=== PATIENT | male | born 1970 | race Caucasian/White ===

== ENCOUNTER → 2018-04-19 | Outpatient (CLI) | payer BC, OTHER ==
--- NOTE | 2018-04-19 13:43 | KCIC ---
MR of the left knee Indication: Left knee pain and swelling. Medial pain for a few weeks. No known injury. Technique: The standard multiplanar sequences are obtained. FINDINGS: Artifact: No significant image degradation. Medial meniscus: Degenerative tear particularly through the body and posterior horn. Lateral meniscus: Mild signal within lateral meniscus but no definite tear Anterior cruciate ligament: Intact Posterior cruciate ligament: Intact Medial collateral ligament: Intact. Lateral structures: * Iliotibial band: Intact. * Lateral collateral ligament: Intact. * Biceps femoris tendon: Intact * Popliteus tendon attachment: Intact Extensive mechanism: * Patellar tendon: Intact * Quadriceps tendon: Intact * Retinacular structures: Intact Fluid: Moderate joint effusion. No significant Godoy's cyst. Intra-articular bodies: None visualized Joint compartments * patellofemoral joint:Intact * medial compartment:Intact * lateral compartment:Intact Bones: Acute subchondral marrow edema at the anterior medial tibial plateau. No gross macro fracture. No aggressive bone destruction. Soft tissue: Unremarkable Impression: 1. Medial meniscal tear. 2. Acute subchondral marrow edema at the anterior medial tibial plateau, consider marrow or subtle nondisplaced fracture if there has been an injury. If not, consider a small stress reaction. Electronically signed by: Hermelindo Cottrell MD (04/19/2018 1:40 PM) [facility]
== END | disposition home or self-care (01) ==
LOC: KCIC MRI 11:59
DX: S83.242A Other tear of medial meniscus, current injury, left knee, initial encounter (principal); X58.XXXA Exposure to other specified factors, initial encounter; Y93.89 Activity, other specified; Y92.89 Other specified places as the place of occurrence of the external cause; Y99.8 Other external cause status
CPT/HCPCS: 73721

== ENCOUNTER 2018-06-28 09:46 | Day surgery (SDC) | payer BC, OTHER ==
[~2018-06-28] VITALS: Ht 182.9 cm; Wt 91.6 kg
[~2018-06-28 09:46] MED LIST: HYDROmorphone 2 MG/ML VIAL IV PRN; IBUP-1027 PO; IV RINGERS,LACTATED 1000ML 1,000 ML IV SCH; LIDOCAINE 1% PF 2 ML VIAL. ID PRN; MORPHINE SULFATE 2 MG/ML VIAL. IV PRN; ONDANSETRON PF 4 MG/2 ML VIAL. IV PRN; PROCHLORPERAZINE 10 MG/2 ML VIAL. IV PRN; fentaNYL PF VIAL 100 MCG/2 ML VIAL IV PRN
[2018-06-28] MEDS ORDERED: VENTOLIN HFA18 GM INH (10:10)
--- NOTE | 2018-06-28 10:22 | DISCH ---
DISCHARGE INSTRUCTIONS Condition on Discharge Condition on Discharge: Stable Activity After Discharge Activity Instructions for Disc: Other, see below Other activity instructions: okay to weight-bear as tolerated Bathing Instructions: Shower-keep dressing dry Weight Bearing Status after Di: As tolerated Diet after Discharge Diet after Discharge: Regular Wound Incision Care Wound/Incision Care: Ice to area for comfort, Keep wound/cast CDI, Change dressing Other wound/incision instructi: okay to change dressing after [address] after DC Call your doctor for: Concerns you may have Follow-Up Follow up with: Rupal in 2 weeks ELIJAH TINEO II, MD Jun 28, 2018 10:22
[2018-06-28] MEDS ORDERED: BUPIVACAINE MPF 0.5% 30 ML VIAL. ONE (11:12)
[2018-06-28] MEDS ORDERED: EPINEPHrine VIAL 30 MG/30 ML VIAL ONE (11:12)
[2018-06-28] MEDS ORDERED: LIDOCAINE 1% PF 30 ML VIAL. ONE (11:12)
[2018-06-28] MEDS ORDERED: LIDOCAINE 2% PF Vial for OR 5 ML VIAL. ONE (12:00)
[2018-06-28] MEDS ORDERED: PROPOFOL 20 ML IV ONE ×3 (12:00→13:29)
[2018-06-28] MEDS ORDERED: fentaNYL PF VIAL 100 MCG/2 ML VIAL ONE ×2 (12:00→13:22)
[2018-06-28] MEDS ORDERED: ONDANSETRON PF 4 MG/2 ML VIAL. ONE (12:00)
[2018-06-28] MEDS ORDERED: DEXAMETHASONE SOD PHOS 20 MG/5 ML VIAL. ONE (12:00)
[2018-06-28] MEDS ORDERED: MIDAZOLAM HCL/PF 2 MG/2 ML VIAL. ONE (12:00)
[2018-06-28] MEDS ORDERED: SEVOFLURANE 31 TO 60 MINUTES. IH ONE (13:24)
--- NOTE | 2018-06-28 13:39 | PDOC4 ---
Operative Note Operative Note Date of procedure: 06/28/2018 Surgeon: Greg Tineo Preoperative diagnosis: Left knee medial meniscal tear Postoperative diagnosis: same Procedure performed: Left knee arthroscopic partial medial meniscectomy Anesthesia: GETA Tourniquet time: 16min Complications: none Blood loss: 5mL Findings: Grade II-III changes centrally at patella and trochlea Intact medial compartment cartilage Intact lateral compartment cartilage Intact cruciate ligaments No loose bodies Intact lateral meniscus Complex degenerative tear at the midportion of body of medial meniscus Reason for procedure: 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 Please see my outpatient consult note for full details. We tried an injection and rehabbing his knee, however this was unsuccessful. Given his knee pain, painful catching, we had a discussion of the risks, benefits, and alternatives to the above surgery as this problem was interfering with his ability to work. Description of procedure: patient was greeted in the preoperative holding area where the correct extremity was verified and marked. He was taken back to the operative suite and his antibiotics were started as he was brought back. Once in the operating room, he was transferred gently supine to the operating room table and secured the bed with all pressure points padded and had successful induction of a general anesthetic. A nonsterile tourniquet was applied to his left upper thigh. We had a padded bump laterally at his hip and a padded bar across for the bed. The left lower extremity was prepped and draped in our usual sterile fashion we conducted our standard preoperative timeout. I then palpated and localized surface anatomy and atiya lines for my standard anterolateral anteromedial arthroscopic portals. I incised the skin through the anterolateral portal after exsanguinating the extremity with an Esmarch and insufflated tourniquet to 250 mmHg. I then introduce the blunt arthroscopic trocar into the suprapatellar pouch followed by the camera. I then conducted my diagnostic arthroscopy with the above noted findings and upon entering the medial compartment used a spinal needle to localize the anteromedial portal and incised skin in accordance with this. I used a straight hemostat to dilate the hole. I introduce my probe and continued on with my diagnostic arthroscopy. I noted no other pathology and then returned to the medial compartment and inspected the meniscus tear. I do not think it was amenable to repair. Therefore used a combination of arthroscopic biter and shaver to debride back to stable edges. After this was accomplished I inspected the gutters again and place E camera and shaver the suprapatellar pouch and performed repeated aspiration maneuvers with an bilingual teacher assistant vigorously palpating the posterior knee. I then removed all excess arthroscopic fluid and the arthroscopic instrumentation. The portals were closed with simple interrupted 3-0 nylon. A sterile bulky soft dressing was applied followed by an Chilo wrap. Tourniquet was let down. No complications. At the conclusion of the surgery, the patient was awakened from anesthesia and transferred gently supine to the PACU cart and taken to the PACU in a stable and extubated condition. Postoperative plan is weight-bear as tolerated. Ill see him back in 2-3 weeks. Hell be discharged home today. GREG TINEO II, MD Jun 28, 2018 13:39
[2018-06-28] MEDS ORDERED: DOCU-109 PO (13:50)
[2018-06-28] MEDS ORDERED: HYDR-3164 PO (13:50)
[2018-06-28] MEDS ORDERED: ONDA8TAB9 PO (13:51)
[2018-06-28] MEDS ORDERED: HYDROcodone/APAP 5/325MG 1 TAB TABLET PO ONE (14:15)
[2018-06-28] MEDS ORDERED: ALBUTEROL SULFATE 2.5 MG/3 ML NEBU. ONE (14:24)
[2018-06-28] MEDS ORDERED: ALBUTEROL SULFATE 2.5 MG/3 ML NEBU. NEB ONE (14:30)
[2018-06-28 14:40] VITALS: BP 145/67
== END 2018-06-28 15:05 | disposition home or self-care (01) ==
LOC: SURG 09:46
PROVIDERS: ATTEND Orthopaedic Surgery Sports Medicine
DX: S83.242A Other tear of medial meniscus, current injury, left knee, initial encounter (principal); M17.11 Unilateral primary osteoarthritis, right knee; G89.29 Other chronic pain; M54.9 Dorsalgia, unspecified; G47.00 Insomnia, unspecified; N52.9 Male erectile dysfunction, unspecified; X58.XXXA Exposure to other specified factors, initial encounter; Y93.89 Activity, other specified; Y92.89 Other specified places as the place of occurrence of the external cause; Y99.8 Other external cause status; Z82.3 Family history of stroke; Z79.899 Other long term (current) drug therapy; Z98.890 Other specified postprocedural states
CPT/HCPCS: 29881; A7015; C1782; J0171; J0690; J1100; J2001; J2250; J2405; J2704; J3010; J3490; J7613

== ENCOUNTER → 2019-05-14 | Outpatient (CLI) | payer BC, OTHER ==
[~2019-05-14] MED LIST changes: +DOCU-109 PO; +HYDR-3164 PO; -HYDROmorphone 2 MG/ML VIAL IV PRN; -IV RINGERS,LACTATED 1000ML 1,000 ML IV SCH; -LIDOCAINE 1% PF 2 ML VIAL. ID PRN; -MORPHINE SULFATE 2 MG/ML VIAL. IV PRN; +ONDA8TAB9 PO; -ONDANSETRON PF 4 MG/2 ML VIAL. IV PRN; -PROCHLORPERAZINE 10 MG/2 ML VIAL. IV PRN; +VENTOLIN HFA18 GM INH; -fentaNYL PF VIAL 100 MCG/2 ML VIAL IV PRN
--- NOTE | 2019-05-14 13:30 | KCIC ---
MR of the left shoulder HISTORY: Left shoulder pain after injury March 13, 2019. Clavicle fracture. TECHNIQUE: Routine multiplanar sequences are obtained. FINDINGS: Correlation with radiograph since 04/10/2019. Comminuted displaced fracture of mid clavicle is again identified. Edema/hemorrhage between fragments. The acromioclavicular joint is intact. Mild rotator cuff tendon signal. No evidence of measurable rotator cuff tear. Minimal cystic changes at the greater tuberosity. No significant subdeltoid bursal effusion. No significant glenohumeral joint effusion. No acute articular cartilage defect. No evidence of labral tear or detachment mild proximal biceps tendinosis without evidence of tear Aggressive bone destruction. No abnormal soft tissue fluid collection. IMPRESSION: 1. Comminuted mildly displaced clavicular shaft fracture is again identified as compared with prior radiographs. 2. Mild rotator cuff tendinosis without measurable tear. Electronically signed by: Hermelindo Cottrell MD (05/14/2019 1:27 PM) [id number]
== END | disposition home or self-care (01) ==
LOC: KCIC MRI 09:12
DX: S42.012A Anterior displaced fracture of sternal end of left clavicle, initial encounter for closed fracture (principal); M89.8X1 Other specified disorders of bone, shoulder; X58.XXXA Exposure to other specified factors, initial encounter; Y93.89 Activity, other specified; Y92.89 Other specified places as the place of occurrence of the external cause; Y99.8 Other external cause status
CPT/HCPCS: 73221

== ENCOUNTER → 2021-04-29 | Outpatient (CLI) | payer BC, OTHER ==
--- NOTE | 2021-04-29 13:02 | KCIC ---
CT for coronary artery calcium scoring, without IV contrast, 04/29/2021 12:57 PM INDICATION: Reason: HYPERLIPIDEMIA, SMOKER / Technique: Noncontrast CT images through the coronary arteries was performed . Findings: There is a 3 mm noncalcified nodule in the left lower lobe. There is a 2 mm noncalcified nodule right middle lobe. No other significant noncardiac findings are identified. Visual inspection of the coronary arteries demonstrates no visible calcification. The remaining coronary arteries are without discernible calcified plaque. The computer-generated calcium scoring utilizing AJ-130 criteria are as follows: Left Main Artery: 0. Left Anterior Descending Artery: 0. Left Circumflex Artery: 0. Right Coronary Artery: 0. The total calcium score is 0. Impression: 1.Your total calcium score is 0. No plaque is present. The chance of significant heart disease is le ss than 5%, and corresponds to a very low risk for a myocardial infarction. 2. 3 mm noncalcified nodule, left lower lobe. 2 mm noncalcified nodule right middle lobe. If patient is considered low risk for, no follow-up is recommended. Given smoking history, CT chest in one year recommended. Table: 0: No plaque is present. The chance of significant heart disease is less than 5%, and corresponds to a very low risk for a myocardial infarction. 1-10: A small amount of plaque is present. The chance of significant heart disease is less than 10%, and corresponds to a low risk for a myocardial infarction. 11-100: Plaque is present. This correlates with mild heart disease and a moderate risk for a myocardi al infarction. 101-400: A moderate amount of plaque is present. This correlates with heart disease, and a moderate t o high risk for a myocardial infarction. Over 400: A large amount of plaque is present. This correlates with a greater than 90% chance of a h igh grade stenosis. The risk for myocardial infarction is high. Fleischner Society pulmonary nodule recommendations 2017, revision 4 SOLID NODULES Solitary solid nodule <6 mm (<100 mm3) low-risk patients: no routine follow-up required high-risk patients: optional CT at 12 months (particularly with suspicious nodule morphology and/or upper lobe location) When multiple nodules are present, the most suspicious nodule should guide further individualized man agement. Electronically signed by: Fercho Lewis MD (04/29/2021 1:00 PM) [id number]
== END ==
LOC: KCIC CT 12:19
PROVIDERS: ATTEND Physician Assistant
DX: E78.5 Hyperlipidemia, unspecified (principal); R91.8 Other nonspecific abnormal finding of lung field; I51.9 Heart disease, unspecified
CPT/HCPCS: 75571